=== PATIENT | female | born 1980 | race Caucasian/White ===

== ENCOUNTER 2018-10-31 14:55 | Emergency (ER) | payer OTHER ==
[2018-10-31] MEDS ORDERED: Famotidine IV* 10 MG/ML 2 ML (20 mg) IV SLOW PU ONE (15:05)
[2018-10-31] MEDS ORDERED: NS 0.9% 1000 ML** 1,000 ML IV ONE (15:05)
[2018-10-31] MEDS ORDERED: methylPREDNISolone 125 MG* 2 ML VIAL IV ONE (15:05)
--- NOTE | 2018-10-31 15:28 | UC ---
Allergic Reaction HPI - HPI Summary HPI Summary: 38-year-old female who was stung by a bee on the right forearm approximately 20 minutes prior to arrival. She has a history of slight allergic reactions but has never had a systemic anaphylactic reaction. She does arrive feeling somewhat nauseous, and she feels like she's having some difficulty swallowing although has no hives. - History of Current Complaint Chief Complaint: UCAllergicReaction Stated Complaint: BEE STING Time Seen by Provider: 10/31/18 14:58 Hx Obtained From: Patient ?: No Onset/Duration: Sudden Onset Severity Initially: Mild Severity Currently: Mild Pain Intensity: 0 Aggravating Factor(s): Nothing Alleviating Factor(s): Antihistamines - Patient took 50 mg of Benadryl by mouth prior to arrival. She does have EpiPen's however they were and she did not use them. Associated Signs And Symptoms: Positive: Nausea, Throat Tightening - Related Hx Possible Reaction To: Insect - Allergies/Home Medications Allergies/Adverse Reactions: Allergies Allergy/AdvReac Type Severity Reaction Status Date / Time codeine Allergy Unknown Verified 10/31/18 15:09 Reaction Details Sulfa (Sulfonamide Allergy Unknown Verified 10/31/18 15:09 Antibiotics) Reaction Details Home Medications: Home Medications diphenhydrAMINE HCl [Benadryl Allergy] 50 mg PO Q6HR 10/31/18 [History Confirmed 10/31/18] PMH/Surg Hx/FS Hx/Imm Hx Previously Healthy: Yes Other Cardiovascular History: PVC's - Surgical History Surgical History: None - Family History Known Family History: Positive: Non-Contributory - Social History Lives: With Family Alcohol Use: Weekly Substance Use Type: None Smoking Status (MU): Never Smoked Tobacco Review of Systems All Other Systems Reviewed And Are Negative: Yes Constitutional: Positive: Negative Respiratory: Positive: Other - She has a feeling like her throat is tight. Gastrointestinal: Positive: Nausea Is Patient Immunocompromised?: No Physical Exam Triage Information Reviewed: Yes Appearance: Well-Appearing, No Pain Distress, Well-Nourished Vital Signs: Initial Vital Signs Temp 97.7 F 10/31/18 15:01 Pulse 72 10/31/18 15:01 Resp 16 10/31/18 15:01 BP 137/100 10/31/18 15:01 Pulse Ox 100 10/31/18 15:01 Vital Signs Reviewed: Yes Eyes: Positive: Conjunctiva Clear ENT: Positive: Hearing grossly normal, Pharynx normal, Uvula midline, Other - No tongue swelling. Neck: Positive: Supple, Nontender, No Lymphadenopathy Respiratory: Positive: Lungs clear, Normal breath sounds, No respiratory distress, No accessory muscle use Cardiovascular: Positive: RRR, No Murmur, Pulses Normal, Brisk Capillary Refill Musculoskeletal Exam: Normal Neurological Exam: Normal Psychological Exam: Normal Skin: Positive: Other - Patient has a bee sting to her right inner arm however no swelling and no erythema or local reaction from that. Re-Evaluation - Re-Evaluation First Eval Re-Evaluation Time: 15:25 Change: Improved Second Eval Re-Evaluation Time: 16:00 Change: Improved - Patient states that she no longer feels like she has a rock or pebble in her throat and that she is completely back to normal. Allergic Reaction Course/Dx - Course Course Of Treatment: An IV of normal saline was started and is running wide-open, the patient had already taken Benadryl 50 mg by mouth prior to arrival, she was given Solu- Medrol 125 mg IV, she was given Pepcid 40 mg IV. Within about 5-10 minutes after giving this medication she was feeling better. She was observed until 1700 and she feels like she is back to normal. - Differential Dx/Diagnosis Provider Diagnosis: Allergic reaction to bee sting Discharge - Sign-Out/Discharge Documenting (check all that apply): Patient Departure All imaging exams completed and their final reports reviewed: No Studies - Discharge Plan Condition: Fair Disposition: HOME Prescriptions: EPINEPHrine [Epipen 2-Jonnathan] 0.3 mg IJ ONCE PRN #1 auto.injct PRN Reason: Rash Famotidine TAB* [Pepcid 20 MG TAB*] 20 mg PO BID 7 Days #14 tab predniSONE TAB* [Deltasone 10 MG TAB*] 50 mg PO DAILY 5 Days #25 tab Patient Education Materials: General Allergic Reaction (ED) Referrals: [facility] [place] [facility] [Outside] No Primary Care Phys,NOPCP [Primary Care Provider] - Additional Instructions: Continue Benadryl 50 mg by mouth every 6 hours for the next 24 hours and then as needed. Avoid hot showers or heat as this will cause more of a rash and itching. Start the prednisone tomorrow and take it with food, start the Pepcid tomorrow. Follow-up in the emergency room if you develop any worsening symptoms , difficulty breathing, feeling like your throat is closing, facial swelling or generalized hives. - Billing Disposition and Condition Condition: FAIR Disposition: Home - Attestation Statements Provider Attestation: I was available for consult. This patient was seen by the LUPE. The patient was not presented to, seen by, or examined by me. -Dominik
[2018-10-31] MEDS ORDERED: EPINEPHRINE 1 MG/ML 1 ML VIAL ONE (16:56)
[2018-10-31 21:15] VITALS: BP 123/87
== END 2018-10-31 17:00 | disposition home or self-care (01) ==
LOC: UCEAST 14:55
DX: T63.441A Toxic effect of venom of bees, accidental (unintentional), initial encounter (principal); Y92.9 Unspecified place or not applicable; Z88.5 Allergy status to narcotic agent; Z88.2 Allergy status to sulfonamides
CPT/HCPCS: 96360; 96374; 96375; 99201; G0463; J2930

== ENCOUNTER 2019-02-12 10:57 | Emergency (ER) | payer OTHER ==
[2019-02-12 11:12] VITALS: BP 123/72
--- NOTE | 2019-02-12 11:28 | UC ---
Upper Extremity HPI - HPI Summary HPI Summary: tripped and fell hit mid right forearm on entertainment center--some tingling in fingers-n/m/c intact distally--full rom above and below injury - History of Current Complaint Chief Complaint: UCUpperExtremity Stated Complaint: RIGHT ARM INJURY Time Seen by Provider: 02/12/19 11:25 Hx Obtained From: Patient Hx Last Menstrual Period: iud in place ?: No Onset/Duration: Sudden Onset Pain Intensity: 6 Pain Scale Used: 0-10 Numeric Location Of Pain: Is Discrete @ Character: Aching, Throbbing Aggravating Factor(s): Nothing Alleviating Factor(s): Nothing Associated Signs And Symptoms: Positive: Negative Related History: Dominant Hand Right - Allergies/Home Medications Allergies/Adverse Reactions: Allergies Allergy/AdvReac Type Severity Reaction Status Date / Time bee venom protein (honey bee) Allergy Anaphylatic Verified 02/12/19 11:10 Shock codeine Allergy Unknown Verified 02/12/19 11:10 Reaction Details Sulfa (Sulfonamide Allergy Unknown Verified 02/12/19 11:10 Antibiotics) Reaction Details Home Medications: Home Medications Ibuprofen 600 mg PO ONCE PRN 02/12/19 [History Confirmed 02/12/19] Levonorgestrel (Iud) [Mirena IUD] 1 unit INTRAUTERI ONCE 02/12/19 [History Confirmed 02/12/19] PMH/Surg Hx/FS Hx/Imm Hx Previously Healthy: Yes - Surgical History Surgical History: Yes Surgery Procedure, Year, and Place: cholecystectomy 2012. appendectomy 2004. wrist surgery right 1998. left foot surgery 1989 - Family History Known Family History: Positive: Non-Contributory - Social History Occupation: Employed Full-time Lives: With Family Alcohol Use: Weekly Substance Use Type: None Smoking Status (MU): Never Smoked Tobacco Review of Systems All Other Systems Reviewed And Are Negative: Yes Constitutional: Positive: Negative Skin: Positive: Negative Eyes: Positive: Negative ENT: Positive: Negative Respiratory: Positive: Negative Cardiovascular: Positive: Negative Gastrointestinal: Positive: Negative Genitourinary: Positive: Negative Motor: Positive: Negative Neurovascular: Positive: Negative Musculoskeletal: Positive: Arthralgia - right mid forearm Neurological: Positive: Negative Psychological: Positive: Negative Is Patient Immunocompromised?: No Physical Exam Triage Information Reviewed: Yes Appearance: Well-Appearing, No Pain Distress, Ill-Appearing Vital Signs: Initial Vital Signs Temp 99.7 F 02/12/19 11:05 Pulse 90 02/12/19 11:05 Resp 18 02/12/19 11:05 BP 123/72 02/12/19 11:05 Pulse Ox 100 02/12/19 11:05 Vital Signs Reviewed: Yes Eye Exam: Normal Eyes: Positive: Conjunctiva Clear ENT Exam: Normal ENT: Positive: Normal ENT inspection, Hearing grossly normal. Negative: Trismus , Muffled voice, Hoarse voice Dental Exam: Normal Neck exam: Normal Neck: Positive: Supple Respiratory Exam: Normal Respiratory: Positive: Chest non-tender, No respiratory distress, No accessory muscle use Cardiovascular Exam: Normal Cardiovascular: Positive: RRR, Pulses Normal, Brisk Capillary Refill Musculoskeletal Exam: Normal Musculoskeletal: Positive: Strength Intact, ROM Intact, No Edema Neurological Exam: Normal Neurological: Positive: Alert, Fatigued Psychological Exam: Normal Skin Exam: Normal Diagnostics - Radiology No standard instances Radiology Interpretation Completed By: ED Physician - no evidence of fracture Upper Extremity Course/Dx - Course Course Of Treatment: clive wrap ibuprofen ice follow with pcp prn - Differential Dx/Diagnosis Provider Diagnosis: Contusion of right arm Discharge ED - Sign-Out/Discharge Documenting (check all that apply): Patient Departure All imaging exams completed and their final reports reviewed: No - Discharge Plan Condition: Stable Disposition: HOME Patient Education Materials: Ibuprofen (By mouth), Contusion in Adults (ED), R.I.C.E. Treatment (ED) Referrals: [facility] [Outside] - If Needed - Billing Disposition and Condition Condition: STABLE Disposition: Home - Attestation Statements Provider Attestation: I was available for consult. This patient was seen by the LU[facility]. The patient was not presented to , seen by or examined by dc -Varinder Real MD
--- NOTE | 2019-02-12 16:24 | UC ---
- Progress Note Progress Note: wet read correct Course/Dx - Diagnoses Provider Diagnoses: Contusion of right arm Discharge ED - Sign-Out/Discharge Documenting (check all that apply): Post-Discharge Follow Up All imaging exams completed and their final reports reviewed: Yes - Discharge Plan Condition: Stable Disposition: HOME Patient Education Materials: Ibuprofen (By mouth), Contusion in Adults (ED), R.I.C.E. Treatment (ED) Referrals: [facility] [Outside] - If Needed - Billing Disposition and Condition Condition: STABLE Disposition: Home
== END 2019-02-12 12:00 | disposition home or self-care (01) ==
LOC: UCEAST 10:57
DX: S40.021A Contusion of right upper arm, initial encounter (principal); Z91.030 Bee allergy status; Z88.5 Allergy status to narcotic agent; Z88.2 Allergy status to sulfonamides; W01.0XXA Fall on same level from slipping, tripping and stumbling without subsequent striking against object, initial encounter; Y92.9 Unspecified place or not applicable
CPT/HCPCS: 99212; G0463

== ENCOUNTER 2019-06-24 12:30 | Emergency (ER) | payer OTHER ==
[2019-06-24 13:03] VITALS: BP 128/83
--- NOTE | 2019-06-24 13:08 | UC ---
Skin Complaint HPI - HPI Summary HPI Summary: 39-year-old female presents with complaints of painful rash to the base her skull and right side of her neck. States pain started 3 days ago and noticed a rash the following day. Describes pain as severe burning. Reports did have chickenpox as a child. Denies fever, swelling of lips, tongue, throat, shortness of breath, changes in soaps, lotions, detergents, cosmetics, or known contact with environmental irritants. - History of Current Complaint Chief Complaint: UCRash Time Seen by Provider: 06/24/19 12:53 Stated Complaint: RASH Hx Obtained From: Patient Hx Last Menstrual Period: IUD Pain Intensity: 4 - Allergy/Home Medications Allergies/Adverse Reactions: Allergies Allergy/AdvReac Type Severity Reaction Status Date / Time bee venom protein (honey bee) Allergy Anaphylatic Verified 06/24/19 12:55 Shock codeine Allergy Unknown Verified 06/24/19 12:55 Reaction Details Sulfa (Sulfonamide Allergy Unknown Verified 06/24/19 12:55 Antibiotics) Reaction Details Home Medications: Home Medications EPINEPHrine [Epipen 2-Jonnathan] 0.3 mg IJ ONCE PRN #1 auto.injct 10/31/18 [Rx Confirmed 06/24/19] Ibuprofen 600 mg PO ONCE PRN 02/12/19 [History Confirmed 06/24/19] Levonorgestrel (Iud) [Mirena IUD] 1 unit INTRAUTERI ONCE 02/12/19 [History Confirmed 06/24/19] Valacyclovir HCl [Valacyclovir] 1,000 mg PO TID #21 tablet 06/24/19 [Rx] diphenhydrAMINE HCl [Benadryl Allergy 25 MG CAP] 25 mg PO DAILY PRN 06/24/19 [ History Confirmed 06/24/19] PMH/Surg Hx/FS Hx/Imm Hx Previously Healthy: Yes - Surgical History Surgical History: Yes Surgery Procedure, Year, and Place: cholecystectomy 2012. appendectomy 2004. wrist surgery right 1998. left foot surgery 1989 - Family History Family History: Denies significant FMH - Social History Occupation: Employed Full-time Lives: With Family Alcohol Use: Occasionally Substance Use Type: None Smoking Status (MU): Never Smoked Tobacco Review of Systems All Other Systems Reviewed And Are Negative: Yes Constitutional: Negative: Fever, Chills Skin: Positive: Rash ENT: Positive: Negative Respiratory: Negative: Shortness Of Breath Cardiovascular: Positive: Negative Gastrointestinal: Positive: Negative Genitourinary: Positive: Negative Musculoskeletal: Positive: Negative Neurological/Mental Status: Positive: Negative Is Patient Immunocompromised?: No Physical Exam - Summary Physical Exam Summary: GENERAL APPEARANCE: Well developed, well nourished, alert and cooperative, and appears to be in no acute distress. CARDIAC: Normal S1 and S2. No S3, S4 or murmurs. Rhythm is regular. There is no peripheral edema, cyanosis or pallor. Extremities are warm and well perfused. Capillary refill is less than 2 seconds. Peripheral pulses intact. LUNGS: Clear to auscultation without rales, rhonchi, wheezing or diminished breath sounds. ABDOMEN: Positive bowel sounds. Soft, nondistended, nontender. No guarding or rebound. No masses or hepatosplenomegally. MUSKULOSKELETAL: ROM intact to all extremities. No joint erythema or tenderness. Normal muscular development. Normal gait. SKIN: Skin normal color, texture and turgor. Small patch of vesicular lesions with crusting to base of right skull and second patch of intact vesicles right side of neck. Triage Information Reviewed: Yes Vital Signs: Initial Vital Signs Temp 97.2 F 06/24/19 12:52 Pulse 89 06/24/19 12:52 Resp 16 06/24/19 12:52 BP 128/83 06/24/19 12:52 Pulse Ox 100 06/24/19 12:52 Vital Signs Reviewed: Yes Course/Dx - Course Course Of Treatment: 39-year-old female presents with complaints of painful rash to the base her skull and right side of her neck. States pain started 3 days ago and noticed a rash the following day. Describes pain as severe burning. Reports did have chickenpox as a child. Denies fever, swelling of lips, tongue, throat, shortness of breath, changes in soaps, lotions, detergents, cosmetics, or known contact with environmental irritants. Afebrile. Vital signs stable. Patient had a small patch of vesicular lesions with crusting to base of right skull and second patch of intact vesicles right side of neck consistent with herpes zoster. Remainder of exam was unremarkable. Will start patient on valacyclovir 1000 mg 3 times a day 7 days. She is to return here or follow up with primary care if symptoms persist. Anticipatory guidance and warning symptoms are reviewed with the patient. Verbalizes understanding and agrees with plan of care. - Differential Diagnoses - Skin Complaint Differential Diagnoses: Allergic Reaction, Cellulitis, Contact Dermatitis, Local Allergic Reaction, Poison [place], Poison [place], Tinea, Urticaria, Varicella Zoster - Diagnoses Provider Diagnosis: Herpes zoster Discharge ED - Sign-Out/Discharge Documenting (check all that apply): Patient Departure All imaging exams completed and their final reports reviewed: No Studies - Discharge Plan Condition: Stable Disposition: HOME Prescriptions: Valacyclovir HCl [Valacyclovir] 1,000 mg PO TID #21 tablet Patient Education Materials: Shingles (ED) Referrals: No Primary Care Phys,NOPCP [Primary Care Provider] - [facility] [place] [facility] [place]Outside] Additional Instructions: Start valacyclovir 1000 mg 1 capsule 3 times a day for 7 days. Use ibuprofen (Advil, Motrin) or naproxen (Aleve) according to directions as needed for pain. Return here or follow up with primary care if symptoms persist. I have given you the contact information for the [facility] physician referral service if you need assistance with establishing with a provider. Seek immediate medical attention if you develop a fever greater than 100.5 F, have redness that rapidly spreads, severe pain not managed with pain medication , or any worsening of symptoms. - Billing Disposition and Condition Condition: STABLE Disposition: Home
== END 2019-06-24 13:25 | disposition home or self-care (01) ==
LOC: UCEAST 12:30
DX: B02.9 Zoster without complications (principal); Z88.5 Allergy status to narcotic agent; Z88.2 Allergy status to sulfonamides; Z91.030 Bee allergy status
CPT/HCPCS: 99212; G0463